=== PATIENT | male | born 1955 | race Two or more races ===

== ENCOUNTER 2020-03-14 17:44 | Inpatient (IN) | payer BC ==
[~2020-03-14] VITALS: Ht 180.3 cm; Wt 101.0 kg
--- NOTE | 2020-03-14 18:11 | NUR ---
PT HAS CO SOB, AND LEFT LEG BLOOD CLOT. PT STATES HE RECIEVED ECHO AND NEW EF OF 20% AND DVT. PT HAS BILAT LEG SWELLING 3+ EDEMA, 20LB WT GAIN IN MONTH. VSS STABLE. 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 PT NO IN DYSTRESS. DYSPNEA WHILE SITTING, ACTIVITY, AND TALKING. MD AT BEDSIDE. NO REDNESS TO LEFT LEG.
[2020-03-14] MEDS ORDERED: JENUVIA (18:16)
[2020-03-14] MEDS ORDERED: HEPARIN 25,000 UNITS/250ML PMX 250 ML IV PRN (18:30)
[2020-03-14] MEDS ORDERED: HEPARIN 5,000 UNITS/ML, 1ML IV ONE (18:30)
[2020-03-14] MEDS ORDERED: SODIUM CHLORIDE FLUSH 10ML SYR IVF ONE (18:30)
[2020-03-14] MEDS ORDERED: HEPARIN 5,000 UNITS/ML, 1ML ONE (18:31)
[2020-03-14] MEDS ORDERED: HEPARIN 25,000 UNITS/250ML PMX 250 ML ONE (18:32)
--- NOTE | 2020-03-14 18:44 | NUR ---
HEPARIN GTT STARTED AT 11 MLS/HR.
--- NOTE | 2020-03-14 18:50 | NUR ---
REPORT TO RACHAEL
[2020-03-14 18:56] LABS: BASOPHILS # (AUTO) 0.03 x10^3/uL (0-0.1); BASOPHILS % (AUTO) 1 % (0-1); EOSINOPHILS % (AUTO) 2 % (1-7); LYMPHOCYTES # (AUTO) 0.93 x10^3/uL (1-3.4); LYMPHOCYTES % (AUTO) 18 % (22-44); MD NO; MEAN CORPUSCULAR HEMOGLOBIN 30.2 pg (27.5-34.5); MEAN CORPUSCULAR HGB CONC 33.2 g/dL (33.2-36.2); MEAN PLATELET VOLUME 9.7 fL (7.4-10.4); MONOCYTES # (AUTO) 0.49 x10^3/uL (0.2-0.8); MONOCYTES % (AUTO) 10 % (2-9); NEUTROPHILS # (AUTO) 3.49 x10^3/uL (1.8-6.8); NEUTROPHILS % (AUTO) 69 % (42-75); PLATELET COUNT 225 x10^3/uL (130-400); RED BLOOD COUNT 4.43 x10^6/uL (4.38-5.82); RED CELL DISTRIBUTION WIDTH 14.8 % (9.4-14.8)
[2020-03-14 19:00] LABS: ANION GAP 7 mmol/L (5-15); CALCIUM 8.9 mg/dL (8.5-10.1); CHLORIDE 108 mmol/L (98-107)
--- NOTE | 2020-03-14 19:05 | NUR ---
REPORT RECEIVED FROM YING SORIANO. SECOND IV STARTED. PT RESTING ON GURNEY WITH HEPARIN RUNNING. MONITORING IN PLACE. PT UPDATED ON POC. DENIES FURTHER NEEDS AT THIS TIME. CALL LIGHT WITHINR REACH, ALL SAFETY MEASURES IN PLACE.
[2020-03-14 19:06] LABS: ALANINE AMINOTRANSFERASE 52 U/L (12-78); ALKALINE PHOSPHATASE 167 U/L (45-117); BILIRUBIN,TOTAL 1.8 mg/dL (0.2-1.0); CREATININE 1.15 mg/dL (0.7-1.3); TOTAL PROTEIN 6.4 g/dL (6.4-8.2); TROPONIN I 0.036 ng/mL (0.000-0.045)
[2020-03-14] MEDS ORDERED: FUROSEMIDE 20 MG/2 ML IV ONE (19:30)
[2020-03-14] MEDS ORDERED: FUROSEMIDE 20 MG/2 ML ONE (19:32)
--- NOTE | 2020-03-14 19:34 | NUR ---
PT TO IMAGING AT THIS TIME.
[2020-03-14] MEDS ORDERED: OMNIPAQUE 350 MG/ML, 75ML BOTTLE ONE (19:48)
--- NOTE | 2020-03-14 20:17 | NUR ---
PT ABLE TO VOID AT THIS TIME. DENIES FURTHER NEEDS AT THIS TIME.
--- NOTE | 2020-03-14 20:17 | NUR ---
SPOKE WITH PT SPOUSE ON THE PHONE AND UPDATED HER ON PT STATUS AND POC.
[2020-03-14] MEDS ORDERED: morphine SULFATE 10 MG/ML, 1ML IVPush PRN (20:30)
[2020-03-14] MEDS ORDERED: ONDANSETRON ODT 4 MG PO PRN (20:30)
[2020-03-14] MEDS ORDERED: ACETAMINOPHEN 325 MG TABLET PO PRN (20:30)
--- NOTE | 2020-03-14 20:39 | NUR ---
FIRST ATTEMPT TO CALL REPORT
--- NOTE | 2020-03-14 20:56 | NUR ---
SECOND ATTEMPT TO CALL REPORT
[2020-03-14 21:27] VITALS: BP 126/86
[2020-03-14 21:28] LABS: TROPONIN I 0.044 ng/mL (0.000-0.045)
[2020-03-14] MEDS: INSULIN LISPRO 100 UNITS/ML, PEN SQ-INSULIN SCH (22:26)
[2020-03-15] MEDS: HEPARIN 5,000 UNITS/ML, 1ML IV PRN ×2 (01:26→09:51)
[2020-03-15 01:42] VITALS: BP 129/83
[2020-03-15 03:37] LABS: BASOPHILS # (AUTO) 0.06 x10^3/uL (0-0.1); BASOPHILS % (AUTO) 1 % (0-1); EOSINOPHILS # (AUTO) 0.08 x10^3/uL (0-0.4); EOSINOPHILS % (AUTO) 2 % (1-7); LYMPHOCYTES # (AUTO) 1.19 x10^3/uL (1-3.4); LYMPHOCYTES % (AUTO) 24 % (22-44); MD NO; MEAN CORPUSCULAR HGB CONC 32.8 g/dL (33.2-36.2); MEAN CORPUSCULAR VOLUME 91.7 fL (81-97); MEAN PLATELET VOLUME 10.1 fL (7.4-10.4); MONOCYTES # (AUTO) 0.52 x10^3/uL (0.2-0.8); MONOCYTES % (AUTO) 11 % (2-9); NEUTROPHILS # (AUTO) 3.04 x10^3/uL (1.8-6.8); NEUTROPHILS % (AUTO) 62 % (42-75); PLATELET COUNT 229 x10^3/uL (130-400); RED BLOOD COUNT 4.34 x10^6/uL (4.38-5.82); RED CELL DISTRIBUTION WIDTH 15.1 % (9.4-14.8)
[2020-03-15 03:49] LABS: ANION GAP 9 mmol/L (5-15); CALCIUM 8.7 mg/dL (8.5-10.1); CHLORIDE 110 mmol/L (98-107); CREATININE 0.95 mg/dL (0.7-1.3)
[2020-03-15 03:52] LABS: TROPONIN I 0.049 ng/mL (0.000-0.045)
[2020-03-15] MEDS: INSULIN LISPRO 100 UNITS/ML, PEN SQ-INSULIN SCH ×4 (07:00→21:26)
[2020-03-15 08:04] VITALS: BP 118/86
[2020-03-15] MEDS: FUROSEMIDE 20 MG/2 ML IV SCH ×2 (08:05→17:15)
[2020-03-15 08:29] LABS: TROPONIN I 0.049 ng/mL (0.000-0.045)
[2020-03-15] MEDS: POTASSIUM CHLORIDE 20 MEQ TAB.ER.PRT PO SCH ×2 (09:51→17:15)
[2020-03-15 09:59] VITALS: BP 101/71
[2020-03-15 13:36] VITALS: BP 120/79
[2020-03-15 16:29] LABS: MICROSCOPIC INDICATED
[2020-03-15 16:37] LABS: CULTURE INDICATED? NO
[2020-03-15] MEDS: RIVAROXABAN 15 MG TABLET PO SCH (17:15)
[2020-03-15] MEDS ORDERED: FURO20TA3 PO (19:11)
[2020-03-15] MEDS ORDERED: ATOR10TA9 PO (19:11)
[2020-03-15] MEDS ORDERED: METF500T17 PO (19:11)
[2020-03-15] MEDS ORDERED: POTA20TA14 PO (19:11)
[2020-03-15] MEDS ORDERED: SITA25TA PO (19:11)
[2020-03-15 20:00] VITALS: BP 107/74
[2020-03-15] MEDS: ATORVASTATIN 40 MG TABLET PO SCH (21:11)
[2020-03-15] MEDS ORDERED: OMNIPAQUE 350 MG/ML, 100ML BOTTLE ONE (23:16)
[2020-03-16 03:53] VITALS: BP 114/82
[2020-03-16 06:00] LABS: ANION GAP 9 mmol/L (5-15); CALCIUM 8.9 mg/dL (8.5-10.1); CHLORIDE 108 mmol/L (98-107)
[2020-03-16 06:18] LABS: CREATININE 0.98 mg/dL (0.7-1.3); PSA SCREEN 0.37 ng/mL (0.00-4.00)
[2020-03-16] MEDS: INSULIN LISPRO 100 UNITS/ML, PEN SQ-INSULIN SCH ×4 (07:00→20:43)
[2020-03-16] MEDS: FUROSEMIDE 20 MG/2 ML IV SCH ×2 (08:02→17:33)
[2020-03-16 08:19] VITALS: BP 113/80
[2020-03-16 09:05] VITALS: BP 109/79
[2020-03-16] MEDS: RIVAROXABAN 15 MG TABLET PO SCH ×2 (09:08→17:33)
[2020-03-16] MEDS: LISINOPRIL 5 MG TABLET PO SCH (09:08)
[2020-03-16] MEDS: POTASSIUM CHLORIDE 20 MEQ TAB.ER.PRT PO SCH ×2 (09:08→17:33)
[2020-03-16 13:49] VITALS: BP 107/79
[2020-03-16 19:27] VITALS: BP 115/81
[2020-03-16] MEDS: ATORVASTATIN 40 MG TABLET PO SCH (20:43)
[2020-03-17 01:01] VITALS: BP 102/69
[2020-03-17 03:08] LABS: BASOPHILS # (AUTO) 0.02 x10^3/uL (0-0.1); BASOPHILS % (AUTO) 0 % (0-1); EOSINOPHILS # (AUTO) 0.09 x10^3/uL (0-0.4); EOSINOPHILS % (AUTO) 2 % (1-7); LYMPHOCYTES # (AUTO) 0.99 x10^3/uL (1-3.4); LYMPHOCYTES % (AUTO) 22 % (22-44); MD NO; MEAN CORPUSCULAR HEMOGLOBIN 29.7 pg (27.5-34.5); MEAN CORPUSCULAR HGB CONC 32.5 g/dL (33.2-36.2); MEAN CORPUSCULAR VOLUME 91.4 fL (81-97); MEAN PLATELET VOLUME 9.5 fL (7.4-10.4); MONOCYTES # (AUTO) 0.48 x10^3/uL (0.2-0.8); MONOCYTES % (AUTO) 11 % (2-9); NEUTROPHILS # (AUTO) 2.92 x10^3/uL (1.8-6.8); NEUTROPHILS % (AUTO) 65 % (42-75); PLATELET COUNT 203 x10^3/uL (130-400); RED BLOOD COUNT 4.42 x10^6/uL (4.38-5.82); RED CELL DISTRIBUTION WIDTH 14.7 % (9.4-14.8)
[2020-03-17 03:17] LABS: ALANINE AMINOTRANSFERASE 32 U/L (12-78); ALBUMIN 2.9 g/dL (3.4-5.0); ANION GAP 9 mmol/L (5-15); CALCIUM 8.7 mg/dL (8.5-10.1); CHLORIDE 110 mmol/L (98-107); CREATININE 1.02 mg/dL (0.7-1.3)
[2020-03-17 03:20] LABS: ALKALINE PHOSPHATASE 140 U/L (45-117); TOTAL PROTEIN 6.1 g/dL (6.4-8.2)
[2020-03-17] MEDS: INSULIN LISPRO 100 UNITS/ML, PEN SQ-INSULIN SCH ×2 (07:00→12:17)
[2020-03-17 08:00] VITALS: BP 138/88
[2020-03-17] MEDS ORDERED: REGADENOSON 0.4 MG/5 ML SYRINGE ONE (08:20)
[2020-03-17] MEDS: POTASSIUM CHLORIDE 20 MEQ TAB.ER.PRT PO SCH (08:34)
[2020-03-17] MEDS: LISINOPRIL 5 MG TABLET PO SCH (08:35)
[2020-03-17] MEDS: FUROSEMIDE 20 MG/2 ML IV SCH (08:35)
[2020-03-17] MEDS: RIVAROXABAN 15 MG TABLET PO SCH (08:35)
[2020-03-17] MEDS ORDERED: CARVEDILOL 3.125 MG TABLET PO SCH (11:00)
[2020-03-17 13:49] VITALS: BP 113/83
[2020-03-17] MEDS ORDERED: FURO40TA6 PO (14:14)
[2020-03-17] MEDS ORDERED: ATOR40TA78 PO (14:14)
[2020-03-17] MEDS ORDERED: RIVA20TA PO (14:14)
[2020-03-17] MEDS ORDERED: CARV3.1212 PO (14:14)
[2020-03-17] MEDS ORDERED: RIVA15TA PO (14:14)
[2020-03-17] MEDS ORDERED: LISI5TAB7 PO (14:14)
[2020-03-18] MEDS ORDERED: FUROSEMIDE 40 MG TABLET PO SCH (09:00)
[2020-04-05] MEDS ORDERED: RIVAROXABAN 20 MG TABLET PO SCH (17:00)
== END 2020-03-17 16:04 | disposition home or self-care (01) | DRG 299 ==
LOC: ED 18:35 → EDIP 20:22 → 5SO 21:32
DX: I82.412 Acute embolism and thrombosis of left femoral vein (principal); I26.09 Other pulmonary embolism with acute cor pulmonale; I50.23 Acute on chronic systolic (congestive) heart failure; D68.59 Other primary thrombophilia; I42.9 Cardiomyopathy, unspecified; I48.92 Unspecified atrial flutter; I11.0 Hypertensive heart disease with heart failure; E11.65 Type 2 diabetes mellitus with hyperglycemia; E78.5 Hyperlipidemia, unspecified; E87.6 Hypokalemia; I07.1 Rheumatic tricuspid insufficiency; I27.20 Pulmonary hypertension, unspecified; Z79.01 Long term (current) use of anticoagulants; Z79.4 Long term (current) use of insulin; Z79.899 Other long term (current) drug therapy; Z80.0 Family history of malignant neoplasm of digestive organs; Z87.891 Personal history of nicotine dependence; R59.0 Localized enlarged lymph nodes
CPT/HCPCS: 36415; 71045; 71275; 74177; 78452; 80048; 80053; 81001; 82962; 83036; 83880; 84484; 85025; 85520; 93005; 93017; 96365; 96366; 99291; G0103; G0378; J1644; J2785; Q9967; A9502; J1815; J1940

== ENCOUNTER → 2020-03-14 | Outpatient (CLI) | payer BC ==
[~2020-03-14] MED LIST: ATOR10TA9 PO; FURO20TA3 PO; JENUVIA; METF500T17 PO; POTA20TA14 PO; SITA25TA PO
== END | disposition home or self-care (01) ==
LOC: CVU 12:53
PROVIDERS: ATTEND Family Medicine Sports Medicine
DX: I82.412 Acute embolism and thrombosis of left femoral vein (principal); I08.8 Other rheumatic multiple valve diseases; M79.89 Other specified soft tissue disorders; I11.9 Hypertensive heart disease without heart failure
CPT/HCPCS: 93306; 93922; 93970

== ENCOUNTER 2020-05-22 06:37 | Day surgery (SDC) | payer BC ==
[~2020-05-22] VITALS: Ht 180.3 cm; Wt 89.0 kg
[~2020-05-22 06:37] MED LIST changes: +ATOR40TA78 PO; +CARV3.1212 PO; +FURO40TA6 PO; +LISI5TAB7 PO; +RIVA15TA PO; +RIVA20TA PO
[2020-05-22 07:19] VITALS: BP 101/70
[2020-05-22] MEDS ORDERED: SODIUM CHLORIDE 0.9% 1,000 ML IV SCH (07:30)
[2020-05-22] MEDS ORDERED: FENTANYL PF 100 MCG/2ML ONE (07:44)
[2020-05-22] MEDS ORDERED: FLUMAZENIL 0.1 MG/1 ML, 5ML ONE (07:45)
[2020-05-22] MEDS ORDERED: MIDAZOLAM 1 MG/ML, 5ML ONE (07:45)
[2020-05-22] MEDS ORDERED: NALOXONE 1 MG/ML, 2ML ONE (07:45)
[2020-05-22] MEDS ORDERED: FURO20TA3 PO (07:55)
[2020-05-22] MEDS ORDERED: ATOR20TA37 PO (07:55)
[2020-05-22] MEDS ORDERED: CARV3.1212 PO (07:55)
[2020-05-22] MEDS ORDERED: LISI5TAB7 PO (07:55)
[2020-05-22] MEDS ORDERED: RIVA20TA PO (07:55)
== END 2020-05-22 13:50 | disposition home or self-care (01) ==
LOC: OUT 06:37
PROVIDERS: ATTEND Specialist
DX: R59.1 Generalized enlarged lymph nodes (principal); I11.0 Hypertensive heart disease with heart failure; I50.9 Heart failure, unspecified; E11.9 Type 2 diabetes mellitus without complications; E78.5 Hyperlipidemia, unspecified; Z79.01 Long term (current) use of anticoagulants; Z86.718 Personal history of other venous thrombosis and embolism; Z86.711 Personal history of pulmonary embolism; Z80.0 Family history of malignant neoplasm of digestive organs
CPT/HCPCS: 32405; 71045; 77012; 88305; 88333; 99156; 99157; J2250; J3010; J7030; J2310

== ENCOUNTER → 2020-07-04 | Outpatient (CLI) | payer BC ==
[~2020-07-04] MED LIST changes: +ATOR20TA37 PO
== END | disposition home or self-care (01) ==
LOC: CVU 14:24
PROVIDERS: ATTEND Internal Medicine Cardiovascular Disease
DX: I08.2 Rheumatic disorders of both aortic and tricuspid valves (principal); I10 Essential (primary) hypertension; I26.99 Other pulmonary embolism without acute cor pulmonale
CPT/HCPCS: 93306; 93356

== ENCOUNTER 2020-10-02 06:09 | Day surgery (SDC) | payer MEDICARE ==
[~2020-10-02] VITALS: Ht 177.8 cm; Wt 100.0 kg
[2020-10-02] MEDS ORDERED: SODIUM CHLORIDE 0.9% 1,000 ML IV SCH (07:17)
[2020-10-02 07:24] VITALS: BP 131/87
[2020-10-02] MEDS ORDERED: NALOXONE 1 MG/ML, 2ML ONE (08:26)
[2020-10-02] MEDS ORDERED: MIDAZOLAM 1 MG/ML, 5ML ONE (08:26)
[2020-10-02] MEDS ORDERED: FLUMAZENIL 0.1 MG/1 ML, 5ML ONE (08:26)
[2020-10-02] MEDS ORDERED: FENTANYL PF 100 MCG/2ML ONE (08:26)
== END 2020-10-02 11:50 | disposition home or self-care (01) ==
LOC: OUT 06:09
PROVIDERS: ATTEND Specialist
DX: R59.1 Generalized enlarged lymph nodes (principal); I11.0 Hypertensive heart disease with heart failure; I50.9 Heart failure, unspecified; E11.9 Type 2 diabetes mellitus without complications; E78.5 Hyperlipidemia, unspecified; E83.52 Hypercalcemia; Z79.01 Long term (current) use of anticoagulants; Z79.84 Long term (current) use of oral hypoglycemic drugs; Z79.899 Other long term (current) drug therapy; Z86.718 Personal history of other venous thrombosis and embolism; Z86.711 Personal history of pulmonary embolism; Z80.0 Family history of malignant neoplasm of digestive organs
CPT/HCPCS: 32405; 71045; 77012; 88305; 99156; 99157; J2250; J3010; 38505; J2310

== ENCOUNTER 2020-10-31 11:29 | Day surgery (SDC) | payer MEDICARE ==
[~2020-10-31] VITALS: Ht 177.8 cm; Wt 99.7 kg
[2020-10-31 12:30] VITALS: BP 139/89
[2020-10-31] MEDS ORDERED: CHLORHEXIDINE 15 ML UDC MM ONE (12:30)
[2020-10-31] MEDS ORDERED: LACTATED RINGERS 1,000 ML IV SCH (12:30)
[2020-10-31] MEDS ORDERED: CHLORHEXIDINE 15 ML UDC ONE (12:33)
[2020-10-31] MEDS ORDERED: HYDROcodone/APAP 7.5-325MG/15ML UDC PO PRN (13:00)
[2020-10-31] MEDS ORDERED: OXYcodone 5 MG/5 ML ORAL.SOL UDC PO PRN (13:00)
[2020-10-31] MEDS ORDERED: MEPERIDINE/PF 25MG/0.5ML IVPush PRN (13:00)
[2020-10-31] MEDS ORDERED: FENTANYL PF 100 MCG/2ML IV PRN (13:00)
[2020-10-31] MEDS ORDERED: PROMETHAZINE 25 MG/ML, 1ML IVPush PRN (13:00)
[2020-10-31] MEDS ORDERED: HYDROmorphone 1 MG/ML, 1ML INJ IVPush PRN (13:00)
[2020-10-31 13:29] LABS: ALANINE AMINOTRANSFERASE 24 U/L (12-78); ALBUMIN 3.9 g/dL (3.4-5.0); ANION GAP 6 mmol/L (5-15); CALCIUM 9.4 mg/dL (8.5-10.1); CHLORIDE 105 mmol/L (98-107); CREATININE 1.09 mg/dL (0.7-1.3)
[2020-10-31 13:31] LABS: ALKALINE PHOSPHATASE 68 U/L (45-117); BILIRUBIN,TOTAL 1.7 mg/dL (0.2-1.0); TOTAL PROTEIN 7.6 g/dL (6.4-8.2)
[2020-10-31] MEDS ORDERED: BUPIVACAINE/PF-EPI 0.5% 1:200K ONE (13:39)
[2020-10-31] MEDS ORDERED: THROMBIN 5,000 UNIT VIAL TP ONE (13:39)
[2020-10-31] MEDS ORDERED: MIDAZOLAM 1 MG/ML, 2ML ONE (13:39)
[2020-10-31] MEDS ORDERED: FENTANYL PF 100 MCG/2ML ONE ×2 (13:39→16:06)
[2020-10-31] MEDS ORDERED: SUCCINYLCHOLINE 20 MG/ML, 10ML ONE (13:40)
[2020-10-31] MEDS ORDERED: NEOSTIGMINE 1 MG/ML, 10ML ONE (13:40)
[2020-10-31] MEDS ORDERED: GLYCOPYRROLATE 0.2MG/1ML, 5ML ONE (13:40)
[2020-10-31] MEDS ORDERED: ROCURONIUM 10MG/ML,5ML ONE (13:40)
[2020-10-31] MEDS ORDERED: ONDANSETRON 2MG/ML, 2ML ONE (13:40)
[2020-10-31] MEDS ORDERED: PROPOFOL 10 MG/ML, 20ML ONE (13:40)
[2020-10-31] MEDS ORDERED: CEFAZOLIN 1,000 MG ONE (13:40)
[2020-10-31] MEDS ORDERED: DEXAMETHASONE 4 MG/ML, 1ML ONE (14:21)
[2020-10-31] MEDS ORDERED: PHENYLEPHRINE 10 MG/ML ONE (14:21)
[2020-10-31] MEDS: LABETALOL 5MG/ML, 20ML IV PRN ×2 (15:49→16:00)
[2020-10-31] MEDS ORDERED: LABETALOL 5MG/ML, 20ML ONE (15:49)
== END 2020-10-31 17:45 | disposition home or self-care (01) ==
LOC: OUT 11:29
PROVIDERS: ATTEND Surgery
DX: R59.0 Localized enlarged lymph nodes (principal); E11.9 Type 2 diabetes mellitus without complications; E78.5 Hyperlipidemia, unspecified; I11.0 Hypertensive heart disease with heart failure; I50.9 Heart failure, unspecified; Z20.828 Contact with and (suspected) exposure to other viral communicable diseases; Z79.01 Long term (current) use of anticoagulants; Z79.84 Long term (current) use of oral hypoglycemic drugs; Z79.899 Other long term (current) drug therapy; Z86.718 Personal history of other venous thrombosis and embolism; Z86.711 Personal history of pulmonary embolism; Z80.9 Family history of malignant neoplasm, unspecified
CPT/HCPCS: 39402; 80053; 82962; 88305; 88312; 93005; J0330; J0690; J1100; J2250; J2370; J2405; J2704; J2710; J3010; J7120; U0003

== ENCOUNTER 2021-01-03 07:29 | Outpatient (CLI) | payer MEDICARE | END 2021-01-03 23:59 | disposition home or self-care (01) | LOC: CVU 07:29 | PROVIDERS: ATTEND Family Medicine Sports Medicine | DX: I35.8 Other nonrheumatic aortic valve disorders (principal); I11.0 Hypertensive heart disease with heart failure; G25.81 Restless legs syndrome; I50.9 Heart failure, unspecified | CPT/HCPCS: 93306; 95886; 95909 ==

== ENCOUNTER → 2021-02-12 | Outpatient (CLI) | payer MEDICARE | END | disposition home or self-care (01) | LOC: CFH 07:51 | PROVIDERS: ATTEND Nurse Practitioner Family | DX: M51.37 Other intervertebral disc degeneration, lumbosacral region (principal); M48.061 Spinal stenosis, lumbar region without neurogenic claudication; M51.47 Schmorl's nodes, lumbosacral region; G62.9 Polyneuropathy, unspecified | CPT/HCPCS: 72148 ==